=== PATIENT | male | born 2000 ===

== ENCOUNTER 2018-06-27 15:05 | Outpatient (CLI) | payer OTHER ==
[2018-06-27 17:47] LABS: eGFR (Non-African) > 60
[2018-06-28 02:21] LABS: BASO % 0.8 % (0.0-1.5); EOS % 5.8 % (0.0-6.8); LYMPH ABS # 2.29 thou/uL (0.60-4.00); MCH. 30.6 pg (28.0-34.0); MONOCYTE % 5.4 % (0.0-11.0); PLATELET COUNT 291 thou/uL (130-400)
== END 2018-06-27 15:06 ==
LOC: CARD 15:05
PROVIDERS: ATTEND Internal Medicine Cardiovascular Disease
DX: R07.9 Chest pain, unspecified (principal); R06.00 Dyspnea, unspecified; R00.2 Palpitations
CPT/HCPCS: 36415; 80053; 83880; 84443; 85025; 99213